=== PATIENT | female | born 1940 | race African-American/Black ===

== ENCOUNTER 2017-04-28 16:43 | Emergency (ER) | payer MEDICARE, OTHER ==
[~2017-04-28] VITALS: Ht 170.2 cm; Wt 70.8 kg
[~2017-04-28 16:43] MED LIST: AMLO10TA2; ATOR20TA; FURO40TA4; LEVEMIR; LISI-646; METO50TA7; NOVOLOG; [UNRECOGNIZED DRUG - OTHER]
[2017-04-28] MEDS ORDERED: cloNIDine HCL 0.1 MG TAB ONE (17:27)
[2017-04-28] MEDS ORDERED: cloNIDine HCL 0.1 MG TAB PO ONE (17:45)
[2017-04-28 18:29] VITALS: BP 191/97
== END 2017-04-28 19:33 | disposition home or self-care (01) ==
LOC: ER 16:43
DX: S01.511A Laceration without foreign body of lip, initial encounter (principal); W01.0XXA Fall on same level from slipping, tripping and stumbling without subsequent striking against object, initial encounter; Y93.01 Activity, walking, marching and hiking; Y92.89 Other specified places as the place of occurrence of the external cause; Y99.8 Other external cause status; E11.9 Type 2 diabetes mellitus without complications; I10 Essential (primary) hypertension
CPT/HCPCS: 12011; 93005

== ENCOUNTER 2018-02-02 12:21 | Observation (INO) | payer MEDICARE, OTHER ==
[~2018-02-02] VITALS: Ht 170.2 cm; Wt 75.3 kg
[~2018-02-02 12:21] MED LIST changes: +MET5XLT; -METO50TA7
[2018-02-02] MEDS ORDERED: SODIUM CHLORIDE 0.9% 1,000 ML IVB ONE (13:20)
[2018-02-02] MEDS ORDERED: cefTRIAXone 1GM/10ml IVPUSH 10 ML IV ONE (13:45)
[2018-02-02 13:54] LABS: Basophils # (auto) 0 uL; Basophils % (auto) 0.3 % (0.0-2.0); Eosinophils # (auto) 0.2 uL; Eosinophils % (auto) 1.3 % (0.0-7.0); Hematocrit 38.9 % (36.0-46.0); Hemoglobin 13.1 g/dL (12.2-16.2); Lymphocytes # (auto) 2.3 uL; Lymphocytes % (auto) 20.8 % (10.0-50.0); Mean Corpuscular Hemoglobin 28.4 pg (28.0-32.0); Mean Corpuscular Hgb Conc. 33.7 g/dL (32.0-36.0); Mean Corpuscular Volume 84.2 fL (80.0-100.0); Monocytes # (auto) 0.8 uL; Monocytes % (auto) 6.9 % (0.0-12.0); Neutrophils # (auto) 7.9 uL; Neutrophils % (auto) 70.7 % (37.0-80.0); Nucleated Red Blood Cells % 0.1 %; Platelet Count (auto) 202 10^3/uL (140-450); Red Blood Cells 4.61 10^6/uL (4.0-5.20); Red Cell Distribution Width 14.4 % (11.8-14.3); White Blood Cell 11.2 10^3/uL (4.4-10.8)
[2018-02-02 14:04] LABS: Urine Bacteria FEW /hpf (None Seen); Urine Blood TRACE /uL (Negative); Urine Specific Gravity 1.017 (1.001-1.035); Urine WBC 1951 /hpf (0 - 5); Urine WBC Clumps PRESENT /hpf (None Seen)
[2018-02-02 14:11] LABS: INR 0.94 (0.9-1.15); Partial Thromboplastin Time 30.1 sec (23.78-33.04); Prothrombin Time 10.1 sec (9.27-12.13)
[2018-02-02 14:15] LABS: Albumin 3.5 g/dL (3.4-5.0); BUN/Creatinine Ratio 12.1; Bilirubin, Total 0.7 mg/dL (0.2-1.0); Calcium 9.1 mg/dL (8.5-10.1); Magnesium 2.6 mg/dL (1.6-2.6); Potassium 3.8 mmol/L (3.5-5.1); Total Protein 7.2 g/dL (6.4-8.2)
[2018-02-02 15:25] VITALS: BP 164/64
== END 2018-02-02 16:41 | disposition left against medical advice (07) | DRG 690 ==
LOC: ER 12:21 → OVERFLOW 12:22 → ER 16:41
PROVIDERS: ADMIT Family Medicine; ATTEND Family Medicine
DX: N30.00 Acute cystitis without hematuria (principal); E11.9 Type 2 diabetes mellitus without complications; I10 Essential (primary) hypertension; E78.5 Hyperlipidemia, unspecified; Z82.49 Family history of ischemic heart disease and other diseases of the circulatory system; Z90.710 Acquired absence of both cervix and uterus; Z79.899 Other long term (current) drug therapy
CPT/HCPCS: 36415; 80053; 81001; 82962; 83605; 83735; 85025; 85610; 85730; 87040; 87086; 87088; 87186; 93005; 96361; 96374; 99285; G0378; J0696; J7030